=== PATIENT | male | born 1990 | race Caucasian/White ===

== ENCOUNTER 2016-12-18 03:03 | Emergency (ER) | payer OTHER ==
[~2016-12-18] VITALS: Ht 167.6 cm; Wt 57.5 kg
[~2016-12-18 03:03] MED LIST: ALPR1TAB7 PO; HYDR-902 PO; HYDR-906 PO; LANT3I SC; LIPA1CAP6 PO; MTF1000T PO; NOVO3I SC; ONDA-43 PO; ONDA4TAB14 PO; QUET100T32 PO; RISP3TAB3 PO
[2016-12-18 03:30] VITALS: Ht 167.6 cm; Wt 57.5 kg
[2016-12-18] MEDS ORDERED: ALPRAZOLAM 0.25 MG TAB PO ONE (06:30)
[2016-12-18] MEDS ORDERED: HYDROCODONE/APAP (10/325) TAB PO ONE (06:30)
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
== END 2016-12-18 06:50 | disposition home or self-care (01) ==
LOC: FTE 03:03
DX: G89.29 Other chronic pain (principal); E11.9 Type 2 diabetes mellitus without complications; F17.210 Nicotine dependence, cigarettes, uncomplicated
CPT/HCPCS: Z7502; Z7610; 99283

== ENCOUNTER 2017-01-26 19:14 | Emergency (ER) | payer OTHER ==
[~2017-01-26] VITALS: Ht 167.6 cm; Wt 52.2 kg
[2017-01-26 19:47] VITALS: Ht 167.6 cm; Wt 52.2 kg
[2017-01-26 21:56] LABS: ADD UMIC NO; URINE BILIRUBIN (Dip) NEGATIVE (NEGATIVE); URINE BLOOD (Dip) NEGATIVE (NEGATIVE); URINE COLOR LT. YELLOW (YELLOW); URINE GLUCOSE (Dip) >=1000 % (NEGATIVE); URINE KETONES (Dip) NEGATIVE (NEGATIVE); URINE LEUKOCYTE ESTERASE (Dip) NEGATIVE (NEGATIVE); URINE NITRITE (Dip) NEGATIVE (NEGATIVE); URINE TOTAL PROTEIN (Dip) NEGATIVE (NEGATIVE); URINE UROBILINOGEN (Dip) 0.2 E.U./dL (0.1-1.0)
--- NOTE | 2017-01-26 22:08 | PSY ---
Date/Time of Note Date/Time of Note DATE: 01/26/17 TIME: 22:02 Psychiatric Subjective Eval Consent Pt consented to telemedicine: Yes Subjective Evaluation Patient location: emergency Chief Complaint: SEVERE ANXIETY, HX BIPOLAR/SCHIZO DRUG USE, DENIES SI/HI Reason for consult: Wants help History of present illness Patient reports that he has been abusing drugs since he was 16 years old. He takes "anything under the sun." He came to the ER tonight because he wants to stop using and find resources for rehab. Patient reports a history of bipolar disorder and schizophrenia. He takes medications for his condition but states that he is stable. His moods are fine. No sleep issues. He does get depressed from time to time and 3 weeks ago he tried to overdose on his medications. This led to a hospitalization. However, he currently does not feel depressed or suicidal. He denies acute hallcuinations and delusions. Past psychiatric history As noted above. Takes Xanax 3mg, Seroquel 700mg qhs, Latuda 40mg po qhs, and Lexapro 20mg daily Hospitalization: yes Family History Problems Family History Problems: (1) Family history of endocrine and metabolic disease Relations: 33 FATHER Medical history Problems Medical Problems: (1) Abdominal pain Status: Acute (2) Abdominal pain Status: Acute (3) Acute pancreatitis Status: Acute (4) Alcohol abuse Status: Acute (5) Chest tightness Status: Acute (6) Chronic pancreatitis Status: Chronic (7) Dehydration Status: Acute (8) Encounter for medication refill Status: Acute (9) Epigastric abdominal pain Status: Acute (10) Hyperglycemia Status: Acute (11) Hypokalemia Status: Acute (12) Hypokalemia Status: Acute (13) Mild dehydration Status: Acute (14) Pancreatitis Status: Acute (15) Pancreatitis Status: Acute (16) Pancreatitis Status: Acute (17) Polydrug abuse Status: Chronic (18) Proc/trtmt not crd out d/t pt lv bef seen by [facility] care prov Status: Acute (19) Transaminitis Status: Acute (20) Transaminitis Status: Acute (21) Type 2 diabetes mellitus without complications Status: Chronic (22) Uncontrolled diabetes mellitus Status: Acute Allergies: Coded Allergies: No Known Drug Allergy (Verified Allergy, Mild, 01/26/17) Substance Abuse Substance abuse history: Yes Prior substance abuse treatmen: Yes Social History Marital status: single Level of education: HS DPA/Conservatorship: No Occupation/Assisted: Not addressed Psychiatric Objective Eval Mental Status Examination: Appearance: Groomed Eye Contact: Good Psychomotor Activity: Normal Behavior: Friendly, Cooperative Speech: Clear AFFECT: Blunt Mood: Anxious Though Process: Linear Thought Content: Normal Suicidal: No Homicidal: No On 72 hour hold: No Orientation: x4 Cognition: Alert Insight: Mild Judgement: Moderate Attention Span: Intact Assessment and Plan Assessment/Diagnosis [place] I: Unspecified Anxiety Disorder, History of Schizophrenia, Substance Abuse Issues [place] III: Diabetes Recommendation/Plan Medication Management None Psychotherapy Brief supportive therapy Pt. Caregiver/Family Education N/A Follow-up/Disposition Please provide resources for rehab in his area. Patient appears to be dual diagnosed and might benefit from a program comfortable with his co-morbid psychiatric issues. He does not appear to be a danger to himself or others. He does not meet the criteria for involuntary hospitalization. AILYN CASTILLO Jan 26, 2017 22:08
[2017-01-26 22:22] LABS: BENZODIAZEPINES Positive (NEGATIVE); CANNABINOIDS Positive (NEGATIVE)
[2017-01-26 22:26] LABS: ADD SCAN DIFF NO
[2017-01-26 22:27] LABS: BARBITURATES Negative (NEGATIVE); COCAINE Negative (NEGATIVE); OPIATES Negative (NEGATIVE)
[2017-01-26 22:28] LABS: BASOPHILS % 0.3 % (0.0-2.0); EOSINOPHILS % 0.5 % (0.0-7.0); HEMATOCRIT 45.6 % (42.0-52.0); HEMOGLOBIN 15.5 g/dl (14.0-18.0); LYMPHOCYTES # 2.8 10^3/ul (0.8-2.9); LYMPHOCYTES % 41.7 % (15.0-51.0); MEAN CORPUSCULAR HEMOGLOBIN 27.9 pg (29.0-33.0); MEAN CORPUSCULAR VOLUME 82.2 fl (82.0-101.0); MEAN PLATELET VOLUME 10.6 fl (7.4-10.4); MONOCYTE # 0.5 10^3/ul (0.3-0.9); MONOCYTES % 7.6 % (0.0-11.0); NEUTROPHIL # 3.3 10^3/ul (1.6-7.5); NEUTROPHILS % 49.4 % (39.0-77.0); PLATELET COUNT 168 10^3/UL (140-415); RED BLOOD COUNT 5.55 10^6/ul (4.70-6.10); RED CELL DISTRIBUTION WIDTH 15.2 % (11.5-14.5); WHITE BLOOD COUNT 6.6 10^3/ul (4.8-10.8)
[2017-01-26 22:42] LABS: ALBUMIN 4.3 g/dl (3.3-4.9)
[2017-01-26 22:43] LABS: CHLORIDE 96 mmol/L (97-110); POTASSIUM 4.1 mmol/L (3.5-5.1); SODIUM 136 mmol/L (135-144)
[2017-01-26 22:45] LABS: ALBUMIN/GLOBULIN RATIO 1.53; ANION GAP 22 (8-16); ASPARTATE AMINO TRANSFERASE 28 IU/L (15-46); BILIRUBIN,INDIRECT 0.3 mg/dl (0-1.1); BILIRUBIN,TOTAL 0.3 mg/dl (0.2-1.3); CARBON DIOXIDE 22 mmol/L (21-31); CREATININE 0.48 mg/dl (0.61-1.24); TOTAL PROTEIN 7.1 g/dl (6.1-8.1)
[2017-01-26 22:46] LABS: ALANINE AMINOTRANSFERASE 32 IU/L (13-69); ALKALINE PHOSPHATASE 103 IU/L (42-121); BLOOD UREA NITROGEN 13 mg/dl (7-20); CALCIUM 9.4 mg/dl (8.4-10.2)
--- NOTE | 2017-01-26 22:53 | ERD ---
ER Documentation Chief Complaint Date/Time DATE: 01/26/17 TIME: 22:51 Chief Complaint SEVERE ANXIETY, HX BIPOLAR/SCHIZO DRUG USE, DENIES SI/HI HPI This is a very pleasant 26-year-old male comes in for severe anxiety. Patient has history of bipolar disorder and schizophrenia along with drug use. He denies suicidal homicidal ideation. Denies auditory or visual hallucinations. Patient wants to speak to psychiatric medicaid business analyst. ROS All systems reviewed and are negative except as per history of present illness. Medications Home Meds Active Scripts Ondansetron (Ondansetron Odt) 4 Mg Tab.rapdis, 4 MG PO Q8, #30 TAB Prov:DANIEL KAMARA NP 10/22/16 Hydrocodone/Acetaminophen ([place] 10-325 Tablet) 1 Each Tablet, 1 TAB PO Q6H Y for PAIN, #20 TAB Prov:DANIEL KMAARA SAND SIFTER 10/22/16 Ondansetron Hcl* (Zofran*) 4 Mg Tab, 4 MG PO Q6H Y for NAUSEA AND OR VOMITING, # 15 TAB Prov:NURIA ANDERSON DO 09/06/16 Hydrocodone/Acetaminophen ([place] 5-325 Tablet) 1 Each Tablet, 1 TAB PO Q6H Y for PAIN, #12 TAB Prov:NURIA ANDERSON DO 09/06/16 Wpjhff-Noyhkeew-Agqnnhe* (Maame KELLY* 24,000) 24,000 L-76,000-120,000 Unit Capsule.dr, 1 CAP PO WITH MEALS for 30 Days Prov:SAGRARIO MENSAH 07/25/16 Insulin Aspart* (Novolog Insulin Pen*) 100 Unit/Ml Soln, 6 UNIT SC WITH MEALS for 30 Days Prov:SAGRARIO MENSAH 07/25/16 Metformin* (Glucophage*) 1,000 Mg Tablet, 1000 MG PO BID, #60 TAB Prov:SAGRARIO MENSAH 07/25/16 Insulin Glargine* (Lantus*) 100 Unit/Ml Soln, 20 UNIT SC HS for 30 Days Prov:TANIKA HORTON MD 07/25/16 Reported Medications Alprazolam* (Alprazolam*) 1 Mg Tablet, 1 MG PO TID, TAB 05/28/16 Quetiapine Fumarate* (Quetiapine Fumarate*) 100 Mg Tablet, 300 MG PO QHS, TAB 03/27/16 Risperidone* (Risperidone*) 3 Mg Tablet, 6 MG PO QHS, TAB 03/27/16 Allergies Allergies: Coded Allergies: No Known Drug Allergy (Verified Allergy, Mild, 01/26/17) PMhx/Soc History of Surgery: Yes (cholecystectomy) Anesthesia Reaction: No Hx Neurological Disorder: No Hx Respiratory Disorders: No Hx Cardiac Disorders: No Hx Psychiatric Problems: Yes (ANXIETY, depression) Hx Miscellaneous Medical Probl: Yes (INTUSSUSEPTION, CHRONIC PANCREATITIS, bipolar, diabetes) Hx Alcohol Use: No Hx Substance Use: Yes (MARIJUANA) Hx Tobacco Use: Yes Smoking Status: Current every day smoker Physical Exam Vitals Vital Signs Date Time Temp Pulse Resp B/P Pulse Ox O2 Delivery O2 Flow Rate FiO2 01/26/17 19:47 98.7 107 20 136/95 100 Physical Exam Const: [] Head: Atraumatic Eyes: Normal Conjunctiva ENT: Normal External Ears, Nose and Mouth. Neck: Full range of motion..~ No meningismus. Resp: Clear to auscultation bilaterally Cardio: Regular rate and rhythm, no murmurs Abd: Soft, non tender, non distended. Normal bowel sounds Skin: No petechiae or rashes Back: No midline or flank tenderness Ext: No cyanosis, or edema Neur: Awake and alert Psych: Normal Mood and Affect Result Diagram: 01/26/172148 Results 24 hrs Laboratory Tests Test 01/26/17 21:30 01/26/17 21:49 Urine Amphetamines Screen Negative Urine Barbiturates Negative Urine Benzodiazepines Screen Positive Urine Bilirubin NEGATIVE Urine Cannabinoids Positive Urine Clarity CLEAR Urine Cocaine Screen Negative Urine Color LT. YELLOW Urine Glucose >=1000% Urine Hemoglobin NEGATIVE Urine Ketones NEGATIVE Urine Leukocyte Esterase NEGATIVE Urine Nitrite NEGATIVE Urine Opiates Screen Negative Urine Specific [place] <=1.005 Urine Total Protein NEGATIVE Urine Urobilinogen 0.2 E.U./dL Urine pH 6.0 Basophils # 0.010^3/ul Basophils % 0.3% Eosinophils # 0.010^3/ul Eosinophils % 0.5% Hematocrit 45.6% Hemoglobin 15.5g/dl Lymphocytes # 2.810^3/ul Lymphocytes % 41.7% Mean Corpuscular Hemoglobin 27.9pg Mean Corpuscular Hemoglobin Concent 34.0g/dl Mean Corpuscular Volume 82.2fl Mean Platelet Volume 10.6fl Monocytes # 0.510^3/ul Monocytes % 7.6% Neutrophils # 3.310^3/ul Neutrophils % 49.4% Nucleated Red Blood Cells # 0.010^3/ul Nucleated Red Blood Cells % 0.0/100WBC Platelet Count 87285^3/UL Red Blood Count 5.5510^6/ul Red Cell Distribution Width 15.2% White Blood Count 6.610^3/ul Procedures/MDM Patient's behavioral symptoms have stabilized while in the department. Patient is medically cleared and appropriate for psychiatric evaluation and work up. No e/o neurologic, toxic, infectious, or metabolic cause. Patient was evaluated by telemetry psychiatry. He was found stable for discharge. Resources were provided. Discharged home. Departure Diagnosis: Primary Impression: Anxiety ANTONIETTA CHENG Jan 26, 2017 22:53
[2017-01-26] MEDS ORDERED: LORA-441 PO (22:54)
[2017-01-26 22:56] LABS: ACETAMINOPHEN < 10.0 ug/ml (10.0-30.0); GLUCOSE 563 mg/dl (70-220); SALICYLATE < 1.0 mg/dl (5.0-30.0)
[2017-01-26] MEDS ORDERED: INSULIN REGULAR, HUMAN 100 UNIT/1 ML 3ML VIAL SC ONE (23:00)
[2017-01-26 23:21] VITALS: BP 121/71; PULSE 96; RESP 20; TEMP 98.1
== END 2017-01-26 23:23 | disposition home or self-care (01) ==
LOC: E/R 19:14
DX: F41.9 Anxiety disorder, unspecified (principal); F17.210 Nicotine dependence, cigarettes, uncomplicated; E11.9 Type 2 diabetes mellitus without complications; Z79.4 Long term (current) use of insulin; Z79.84 Long term (current) use of oral hypoglycemic drugs
CPT/HCPCS: 80053; 80306; 80307; 81003; 83690; 85025; 96372; J1815; Z7502

== ENCOUNTER 2017-02-03 21:08 | Emergency (ER) | payer SELFPAY ==
[~2017-02-03] VITALS: Wt 54.5 kg
[~2017-02-03 21:08] MED LIST changes: +LORA-441 PO
== END 2017-02-03 22:45 | disposition left against medical advice (07) ==
LOC: E/R 21:08
DX: Z53.21 Procedure and treatment not carried out due to patient leaving prior to being seen by health care provider (principal)

== ENCOUNTER 2017-02-19 21:00 | Emergency (ER) | payer SELFPAY | END 2017-02-19 21:30 | disposition left against medical advice (07) | LOC: E/R 21:00 | DX: Z53.21 Procedure and treatment not carried out due to patient leaving prior to being seen by health care provider (principal) ==